=== PATIENT | female | born 1985 | race Hispanic/Latino ===

== ENCOUNTER 2019-08-21 11:25 | Outpatient (CLI) | payer OTHER, MEDICAID, SELFPAY ==
--- NOTE | 2019-08-21 12:14 | PM.OBTRLD ---
Visit Information Visit Information Date of evaluation: 08/21/19 Primary OB Provider: Pairsh Avalos On-call OB Provider: Connie Sanderson Reason for Evaluation: Yes non-stress test Vital Signs Vital Signs: T 35.9 BP 115/61 P 86 PFSH Medical History Thyroid cancer (Acute) Surgical History Anesthesia (Resolved) H/O total thyroidectomy (Acute ~2010) History of appendectomy (Acute ~08/12/11) History of thyroid surgery (Acute) Family History Mother Hypertension Father Diabetes mellitus Brother Asthma Grandfather Diabetes mellitus Grandmother Heart disease Grandfather Cancer Family/Other Colon cancer Hypertension Coronary artery disease Sister Migraines Sister Family history of skin conditions Family/Other Von Willebrand disease Bleeding disorder Social History marital status: unmarried,living together number of children: 2 household members: significant other and children education level: college occupational status: employed current occupational exposures/hazards: No special lucy needs: No (BUT NO BLOOD PRODUCTS PLEASE ) Smoking Status: Never smoker second hand exposure: No substance use type: does not use Evaluation Evaluation Baseline heart rate: 140 Variability: Moderate (11-25) monitor accelerations: Present monitor decelerations: Absent Diagnosis, Plan/Disposition Final Diagnosis (1) 29 weeks gestation of : Current Visit: No Status: Acute Plan/Disposition Plan: Reactive NST for hypothyroidism. Placenta previa noted earlier in but resolved. OB Disposition: home
== END 2019-08-21 12:15 | disposition home or self-care (01) ==
LOC: OB 08-22 13:21
PROVIDERS: PCP Family Medicine
DX: O99.283 Endocrine, nutritional and metabolic diseases complicating pregnancy, third trimester (principal); Z3A.29 29 weeks gestation of pregnancy
CPT/HCPCS: 59025; G0378; G0379

== ENCOUNTER 2019-08-26 09:29 | Outpatient (CLI) | payer OTHER, MEDICAID, SELFPAY | END 2019-08-26 10:30 | disposition home or self-care (01) | LOC: LABOR 11:15 → OB 08-29 09:36 | PROVIDERS: PCP Family Medicine | DX: O43.123 Velamentous insertion of umbilical cord, third trimester (principal); Z3A.30 30 weeks gestation of pregnancy | CPT/HCPCS: 59025; G0378; G0379 ==

== ENCOUNTER 2019-08-29 11:29 | Outpatient (CLI) | payer OTHER, MEDICAID, SELFPAY | END 2019-08-29 12:41 | disposition home or self-care (01) | LOC: LABOR 12:26 → OB 08-30 12:07 | PROVIDERS: PCP Family Medicine | DX: O43.123 Velamentous insertion of umbilical cord, third trimester (principal); Z3A.30 30 weeks gestation of pregnancy | CPT/HCPCS: 59025; G0378; G0379 ==

== ENCOUNTER 2019-09-01 16:46 | Outpatient (CLI) | payer OTHER, MEDICAID, SELFPAY ==
--- NOTE | 2019-09-01 17:47 | PM.OBTRLD ---
Visit Information Visit Information Date of evaluation: 09/01/19 Primary OB Provider: Parish Avalos On-call OB Provider: Connie Sanderson Reason for Evaluation: Yes non-stress test non-stress test reason: other (velamentous cord insertion) Vital Signs Vital Signs: BP119/64 P 97 PFSH Social History marital status: unmarried,living together number of children: 2 household members: significant other and children education level: college occupational status: employed current occupational exposures/hazards: No special lucy needs: No (BUT NO BLOOD PRODUCTS PLEASE ) Smoking Status: Never smoker second hand exposure: No substance use type: does not use Evaluation Evaluation Baseline heart rate: 145 Variability: Moderate (11-25) monitor accelerations: Present monitor decelerations: Absent Category of Tracing: I Diagnosis, Plan/Disposition Final Diagnosis (1) Velamentous insertion of umbilical cord: Current Visit: Yes Status: Acute Plan/Disposition Plan: Reactive NST OB Disposition: home
== END 2019-09-01 18:10 | disposition home or self-care (01) ==
LOC: OB 09-02 10:34
PROVIDERS: PCP Family Medicine
DX: O43.123 Velamentous insertion of umbilical cord, third trimester (principal); Z3A.31 31 weeks gestation of pregnancy
CPT/HCPCS: 59025; G0378; G0379

== ENCOUNTER 2019-09-04 10:58 | Outpatient (CLI) | payer OTHER, MEDICAID, SELFPAY ==
--- NOTE | 2019-09-04 11:55 | P.TNLD_ITS ---
Visit Information Visit Information Date of evaluation: 09/04/19 Primary OB Provider: Parish Avalos On-call OB Provider: Connie Gamez Reason for Evaluation: Yes non-stress test Comments/Additional reasons for admission: NST for velementous cord insertion, no obstetrical complaints. [facility] Medical History Thyroid cancer (Acute) Velamentous insertion of umbilical cord (Acute) Surgical History Anesthesia (Resolved) H/O total thyroidectomy (Acute ~2010) History of appendectomy (Acute ~08/12/11) History of thyroid surgery (Acute) Family History Mother Hypertension Father Diabetes mellitus Brother Asthma Grandfather Diabetes mellitus Grandmother Heart disease Grandfather Cancer Family/Other Colon cancer Hypertension Coronary artery disease Sister Migraines Sister Family history of skin conditions Family/Other Von Willebrand disease Bleeding disorder Social History marital status: unmarried,living together number of children: 2 household members: significant other and children education level: college occupational status: employed current occupational exposures/hazards: No special lucy needs: No (BUT NO BLOOD PRODUCTS PLEASE ) Smoking Status: Never smoker second hand exposure: No substance use type: does not use Review of Systems Constitutional Constitutional: Reports system reviewed and no additional complaints, except as documented Exam Vital Signs (past 8 hours): WNL, visualized at bedside Const General: cooperative, healthy appearing and comfortable Evaluation Evaluation Baseline heart rate: 140 Variability: Average (6-10) monitor accelerations: Present monitor decelerations: Absent Category of Tracing: I Diagnosis, Plan/Disposition Plan/Disposition Plan: home with routine follow up. OB Disposition: home
== END 2019-09-04 12:00 | disposition home or self-care (01) ==
LOC: OB 09-05 16:48
PROVIDERS: PCP Family Medicine
DX: O43.123 Velamentous insertion of umbilical cord, third trimester (principal); Z3A.31 31 weeks gestation of pregnancy
CPT/HCPCS: 59025; G0378; G0379

== ENCOUNTER 2019-09-11 12:28 | Outpatient (CLI) | payer OTHER, MEDICAID, SELFPAY | END 2019-09-11 13:14 | disposition home or self-care (01) | LOC: OB 09-12 10:49 | PROVIDERS: PCP Family Medicine | DX: O43.123 Velamentous insertion of umbilical cord, third trimester (principal); Z3A.32 32 weeks gestation of pregnancy | CPT/HCPCS: 59025; G0378; G0379 ==

== ENCOUNTER 2019-09-15 16:01 | Outpatient (CLI) | payer OTHER, MEDICAID, SELFPAY | END 2019-09-15 17:05 | disposition home or self-care (01) | LOC: LABOR 16:31 → OB 09-29 14:33 | PROVIDERS: PCP Family Medicine | DX: O43.123 Velamentous insertion of umbilical cord, third trimester (principal); Z3A.33 33 weeks gestation of pregnancy | CPT/HCPCS: 59025; G0378; G0379 ==

== ENCOUNTER 2019-09-18 11:17 | Outpatient (CLI) | payer OTHER, MEDICAID, SELFPAY ==
--- NOTE | 2019-09-18 11:55 | P.TNLD_ITS ---
Visit Information Visit Information Date of evaluation: 09/18/19 Primary OB Provider: Parish Avalos On-call OB Provider: Connie Gamez Reason for Evaluation: Yes non-stress test Comments/Additional reasons for admission: This patient presents for scheduled NST at 33+5 for a history of a velamentous cord insertion. The patient reports feeling well with no complaints obstetrical or otherwise. [facility] Medical History Thyroid cancer (Acute) Velamentous insertion of umbilical cord (Acute) Surgical History Anesthesia (Resolved) H/O total thyroidectomy (Acute ~2010) History of appendectomy (Acute ~08/12/11) History of thyroid surgery (Acute) Family History Mother Hypertension Father Diabetes mellitus Brother Asthma Grandfather Diabetes mellitus Grandmother Heart disease Grandfather Cancer Family/Other Colon cancer Hypertension Coronary artery disease Sister Migraines Sister Family history of skin conditions Family/Other Von Willebrand disease Bleeding disorder Social History marital status: unmarried,living together number of children: 2 household members: significant other and children education level: college occupational status: employed current occupational exposures/hazards: No special lucy needs: No (BUT NO BLOOD PRODUCTS PLEASE ) Smoking Status: Never smoker second hand exposure: No substance use type: does not use Review of Systems Constitutional Constitutional: Reports system reviewed and no additional complaints, except as documented Gastrointestinal Gastrointestinal: Reports system reviewed and no additional complaints, except as documented Genitourinary Genitourinary: Reports system reviewed and no additional complaints, except as documented Exam Vital Signs (past 8 hours): 126/67, HR 102 Const General: cooperative, healthy appearing and comfortable Evaluation Evaluation Baseline heart rate: 140 Variability: Average (6-10) monitor accelerations: Present monitor decelerations: Absent Contraction Frequency (minutes): 0 Category of Tracing: I Diagnosis, Plan/Disposition Plan/Disposition Plan: Patient has a cat 1 EFM with reassuring status and no contractions. Discharged home with routine follow up and precautions. OB Disposition: home
== END 2019-09-18 11:55 | disposition home or self-care (01) ==
LOC: OB 09-19 14:58
PROVIDERS: PCP Family Medicine
DX: O43.123 Velamentous insertion of umbilical cord, third trimester (principal); Z3A.33 33 weeks gestation of pregnancy
CPT/HCPCS: 59025; G0378; G0379

== ENCOUNTER 2019-09-21 11:01 | Outpatient (CLI) | payer OTHER, MEDICAID, SELFPAY | END 2019-09-21 11:37 | disposition home or self-care (01) | LOC: OB 09-22 08:22 | PROVIDERS: PCP Family Medicine | DX: O35.8XX0 Maternal care for other (suspected) fetal abnormality and damage, not applicable or unspecified (principal); Z3A.34 34 weeks gestation of pregnancy | CPT/HCPCS: 59025; G0378; G0379 ==

== ENCOUNTER 2023-08-03 18:46 | Emergency (ER) | payer OTHER, MEDICAID, SELFPAY ==
[2023-08-03 19:01] VITALS: BP 116/76; PULSE 85; RESP 18; TEMP 36.2; O2SAT 100; BMI 36.0
--- NOTE | 2023-08-03 20:00 | DI.RAD.S_ITS ---
PROCEDURE: XR CHEST 1V INDICATIONS: chest pain TECHNIQUE: One view of the chest was acquired. COMPARISON: [facility], , CHEST 2VW, 06/24/2012, 14:13. FINDINGS: Surgical changes and devices: None. Lungs and pleura: Lungs are clear. No pleural effusions or pneumothorax. Mediastinum: Mediastinal contours appear normal. Heart size is normal. Bones and chest wall: No suspicious bony lesions. Overlying soft tissues appear unremarkable. IMPRESSION: No acute cardiopulmonary abnormality is seen. Dictated by: Henny Edwards M.D. on 08/03/2023 at 20:29 Approved by: Henny Edwards M.D. on 08/03/2023 at 20:30
[2023-08-03 20:24] LABS: INR 1.1 (0.9-1.3); Prothrombin Time 12.2 SECONDS (9.4-12.5)
[2023-08-03 20:25] LABS: Add Manual Diff / Slide Review NO; Basophils Absolute Auto 0 /uL (0-100); Basophils Percent Auto 0.4 % (0-2); Eosinophils Absolute Auto 100 /uL (0-450); Eosinophils Percent Auto 1.3 % (2-4); Hemoglobin 13.6 g/dL (12.0-16.0); Lymphocytes Absolute Auto 3400 /uL (1100-4500); Lymphocytes Percent Auto 33.5 % (25-40); Mean Corpuscular HGB Conc 34.9 % (30-36); Mean Corpuscular Hemoglobin 31.9 PG (26-34); Mean Corpuscular Volume 91.7 fL (80-100); Monocytes Absolute Auto 800 /uL (0-900); Monocytes Percent Auto 7.5 % (3-14); Neutrophils Absolute Auto 5800 /uL (1500-7000); Neutrophils Percent Auto 57.3 % (50-75); Platelet Count 231 X10^3/uL (150-400); Red Blood Cell Count 4.26 X10^6/uL (4.0-5.2); Red Cell Distribution Width 13.3 % (11.6-14.8); White Blood Cell Count 10.1 X10^3/uL (4.5-11.0)
[2023-08-03 20:26] LABS: PTT Partial Thromboplastin Tim 34 SECONDS (25.1-36.5)
[2023-08-03 20:29] LABS: Alanine Aminotransferase 18 IU/L (<35); Albumin 4.4 g/dL (3.5-5.0); Albumin Globulin Ratio 1.3 (1.0-2.8); Alkaline Phosphatase 71 U/L (38-126); Aspartate Aminotransferase 21 IU/L (14-36); BUN Creatinine Ratio 33.3 (6-22); Bilirubin Total 0.6 mg/dL (0.2-1.3); Blood Urea Nitrogen 21 mg/dL (7-17); Calcium 9.7 mg/dL (8.4-10.2); Carbon Dioxide 26 mmol/L (22-32); Chloride 103 mmol/L (98-107); Creatine Kinase 49 U/L (30-135); Estimated Glomerular Filt Rate > 60 mL/min (>60); Globulin 3.3 g/dL (1.7-4.1); Glucose 105 mg/dL (70-100); HEMOLYSIS < 15 (0-50); Lipase 93 U/L (23-300); Magnesium 1.9 mg/dL (1.6-2.3); Sodium 135 mmol/L (137-145); Total Protein 7.7 g/dL (6.3-8.2)
[2023-08-03 20:40] LABS: Troponin I < 0.012 ng/mL (0.01-0.034)
[2023-08-03 20:56] VITALS: PULSE 87; RESP 20
[2023-08-03 20:57] VITALS: BP 123/74; PULSE 86; RESP 12
[2023-08-03 21:00] VITALS: BP 113/67; PULSE 85
[2023-08-03] MEDS: ONDANSETRON 4 MG ODT SL (21:16)
[2023-08-03 21:30] VITALS: BP 120/79; PULSE 85; RESP 19; O2SAT 99
[2023-08-03] MEDS: IBUPROFEN 400 MG TABLET PO (21:45)
--- NOTE | 2023-08-03 22:01 | ED.CHESTPAIN ---
HPI - Chest Pain General Chief Complaint: Chest Pain Stated Complaint: CHEST PAIN/SOB Time Seen by Provider: 08/03/23 21:06 Source: patient Mode of arrival: Ambulatory History of Present Illness HPI narrative: 37-year-old female here with left-sided chest pain. Has been present for 2 days, constant all day today although waxing and waning severity. It is not exacerbated by exertion it is not associated with shortness of breath nausea or diaphoresis. She has not had similar symptoms in the past. She has not tried anything for pain. Has a history of elevated cholesterol recently diagnosed no family history of coronary disease she does not smoke does not have a history of hypertension or diabetes she has not on oral contraceptives. She has not had fevers or a cough. Related Data Home Medications Medication Instructions Recorded Confirmed fluticasone propionate 50 1 inhalation inhalation BID 07/15/19 12/09/19 mcg/actuation blister powder for inhalation levothyroxine 200 mcg tablet 200 mcg PO DAILY 07/15/19 12/09/19 (Synthroid) prenat.vits,albina,[id number] 1 tab PO DAILY 07/15/19 12/09/19 cetirizine 10 mg disintegrating 10 mg PO DAILY PRN 08/26/19 12/09/19 tablet (Zyrtec) Previous Rx's Medication Instructions Recorded Double Electric Breast Pump #1 ea 08/16/19 Allergies Allergy/AdvReac Type Severity Reaction Status Date / Time buspirone Allergy Insomnia Verified 12/09/19 10:03 Chloraprep Allergy Intermediate severe Uncoded 12/09/19 10:03 erythematous rash Patient History Medical History (Updated 08/03/23 @ 21:42 by Darion Tucker MD) Velamentous insertion of umbilical cord Thyroid cancer Surgical History Anesthesia H/O total thyroidectomy (~2010) History of thyroid surgery History of appendectomy (~08/12/11) Family History Mother Hypertension Father Diabetes mellitus Brother Asthma Grandfather Diabetes mellitus Grandmother Heart disease Grandfather Cancer Family/Other Colon cancer Hypertension Coronary artery disease Sister Migraines Sister Family history of skin conditions Family/Other Von Willebrand disease Bleeding disorder Social History marital status: unmarried,living together number of children: 2 household members: significant other and children education level: college occupational status: employed current occupational exposures/hazards: No special lucy needs: No (BUT NO BLOOD PRODUCTS PLEASE ) Smoking Status: Never smoker second hand exposure: No substance use type: does not use Smoking Status: Never smoker Substance Use Type: does not use Exam Narrative Exam Narrative: Alert, no acute distress HEENT: Normocephalic, atraumaitic moist mucus membranes Neck: Supple no midline tenderness Lungs: Clear to ascultaion, no respiratory distress Heart: Regular rhythm and rate no murmur pressure on chest wall does not reproduce chest pain Abdomen: Normal bowel sounds, soft and nontender Extremeties: Full range of motion no deformity Neuro: Alert and oriented, normal speech moves x4 Initial Vital Signs Initial Vital Signs: Vital Signs Temperature 97.2 F L 08/03/23 19:01 Pulse Rate 85 08/03/23 19:01 Respiratory Rate 18 08/03/23 19:01 Blood Pressure 116/76 08/03/23 19:01 Pulse Oximetry 100 08/03/23 19:01 Oxygen Delivery Method Room Air 08/03/23 19:01 Course Orders Ordered: ED Orders 08/03/23 20:00 XR chest 1V Stat EKG-12 Lead Stat 08/03/23 21:46 Troponin I Stat Discontinued Medications Ibuprofen (Ibuprofen 400 Mg Tablet) 400 mg PO NOW ONE Stop: 08/03/23 21:41 Last Admin: 08/03/23 21:45 Dose: 400 mg Documented By: GAL Ondansetron HCl (Ondansetron 4 Mg/2 Ml Inj) 4 mg IV NOW ONE Stop: 08/03/23 21:07 Last Admin: 08/03/23 21:16 Dose: Not Given Documented By: JOSE RAUL Ondansetron HCl (Ondansetron 4 Mg Odt) 4 mg SL NOW ONE Stop: 08/03/23 21:15 Last Admin: 08/03/23 21:16 Dose: 4 mg Documented By: JOSE RAUL Vital Signs Vital signs: Vital Signs - 8 hr 08/03/23 20:56 08/03/23 20:57 08/03/23 20:57 Pulse Rate 87 86 Respiratory Rate 20 12 Blood Pressure 123/74 Pulse Oximetry Oxygen Delivery Method 08/03/23 21:00 08/03/23 21:00 08/03/23 21:30 Pulse Rate 85 Respiratory Rate Blood Pressure 113/67 120/79 Pulse Oximetry Oxygen Delivery Method 08/03/23 21:30 Pulse Rate 85 Respiratory Rate 19 Blood Pressure Pulse Oximetry 99 Oxygen Delivery Method Room Air MDM - Chest Pain Lab Data Lab results narrative: Troponins are normal x2, CBC with diff and CMP are unremarkable 08/03/23 19:35 08/03/23 19:35 Labs: Lab Results 08/03/23 08/03/23 Range/Units 19:35 21:46 WBC 10.1 (4.5-11.0) X10^3/uL RBC 4.26 (4.0-5.2) X10^6/uL Hgb 13.6 (12.0-16.0) g/dL Hct 39.0 (36-46) % MCV 91.7 (80-100) fL MCH 31.9 (26-34) PG MCHC 34.9 (30-36) % RDW 13.3 (11.6-14.8) % Plt Count 231 (150-400) X10^3/uL Neut % (Auto) 57.3 (50-75) % Lymph % (Auto) 33.5 (25-40) % Morton % (Auto) 7.5 (3-14) % Eos % (Auto) 1.3 L (2-4) % Baso % (Auto) 0.4 (0-2) % Neut # (Auto) 5800 (7500-1930) /uL Lymph # (Auto) 3400 (6470-1774) /uL Morton # (Auto) 800 (0-900) /uL Eos # (Auto) 100 (0-450) /uL Baso # (Auto) 0 (0-100) /uL PT 12.2 (9.4-12.5) SECONDS INR 1.1 (0.9-1.3) APTT 34 (25.1-36.5) SECONDS Sodium 135 L (137-145) mmol/L Potassium 4.0 (3.4-5.1) mmol/L Chloride 103 (98-107) mmol/L Carbon Dioxide 26 (22-32) mmol/L BUN 21 H (7-17) mg/dL Creatinine 0.63 (0.52-1.04) mg/dL Estimated GFR > 60 (>60) mL/min BUN/Creatinine Ratio 33.3 H (6-22) Glucose 105 H (70-100) mg/dL Calcium 9.7 (8.4-10.2) mg/dL Magnesium 1.9 (1.6-2.3) mg/dL Total Bilirubin 0.6 (0.2-1.3) mg/dL AST 21 (14-36) IU/L ALT 18 (<35) IU/L Alkaline Phosphatase 71 (38-126) U/L Total Creatine Kinase 49 (30-135) U/L Troponin I < 0.012 < 0.012 (0.01-0.034) ng/mL Total Protein 7.7 (6.3-8.2) g/dL Albumin 4.4 (3.5-5.0) g/dL Globulin 3.3 (1.7-4.1) g/dL Albumin/Globulin Ratio 1.3 (1.0-2.8) Lipase 93 (23-300) U/L Imaging Data Chest x-ray: My Impression: Independent review portable chest, no acute disease Radiologist's Impression: Per Radiology interpretation, no acute disease ECG Data Interpretation: ECG shows normal sinus rhythm at [address] segment changes no evidence of previous infarction no chamber hypertrophy this was a normal EKG MDM Narrative Medical decision making narrative: 37-year-old female with history of hypercholesterolemia presenting with chest pain. It is atypical in that it is nonexertional has been waxing and waning and is not associated with EKG changes or elevation in troponin after prolonged symptoms. I do not think this is ischemic pain. I considered the possibility of pulmonary embolism, she does have risk factors does not have tachycardia or hypoxia D-dimer is not indicated. Does not seem to be chest wall pain. I think that she can be discharged to outpatient follow up. Indications for return to the emergency department are reviewed. Discharge Plan Departure Patient Disposition: Home Clinical Impression: Chest pain Instructions: DI for Atypical Chest Pain Activity Restrictions/Additional Instructions: Emergency department workup today is reassuring. I do not think that your chest pain is related to are problem or other serious acute medical condition. I think it would be safe to try some ibuprofen as needed for pain. Ibuprofen (motrin or advil) should be dosed at 600mg (3 non-prescription tablets) every 6 hours. Taking this on a scheduled basis is more effective. It is a good idea to take this with food. Use this with caution if you have a history of bleeding ulcers or renal disease. At your request, we are discharging you with a final troponin, blood tests looking for damage to the heart muscle still pending. I will called to notify you if this is abnormal. Continue other previous home medications, recheck in the emergency department if having increasing chest pain shortness of breath fevers or other acute symptoms. Follow up soon with your primary care doctor Prescriptions: No Action prenat.vits,albina,[id number]-[id number] Tablet 1 tab PO DAILY fluticasone propionate 50 mcg/actuation blister with device 1 inhalation INHALATION BID levothyroxine [Synthroid] 200 mcg tablet 200 mcg PO DAILY (DME) Double Electric Breast Pump See Rx Instructions .ROUTE .MEDSUPPLY Qty: 1 0RF Rx Instructions: As directed for 99 months. Zyrtec 10 mg tablet,disintegrating 10 mg PO DAILY PRN Referrals: Celeste Dykes MD [Primary Care Provider] - Stand Alone Forms: Patient Portal/API
[2023-08-03 22:14] LABS: Troponin I < 0.012 ng/mL (0.01-0.034)
--- NOTE | 2023-08-03 22:20 | PC.NURSE ---
spoke with Dr Tucker and received permission to notify pt of neg Trop, pt was called and informed of lab results
== END 2023-08-03 22:00 | disposition home or self-care (01) ==
PROVIDERS: Emergency Provider Emergency Medicine; PCP Family Medicine
DX: R07.9 Chest pain, unspecified (principal)
CPT/HCPCS: 36415; 71045; 80053; 82550; 83690; 83735; 84484; 85025; 85610; 85730; 93005; 99283; 99284; J2405